=== PATIENT | female | born 1980 | race Caucasian/White ===

== ENCOUNTER 2024-02-23 14:04 | Inpatient (IN) | payer OTHER ==
[~2024-02-23] VITALS: Ht 182.9 cm; Wt 59.4 kg
[2024-02-23] MEDS: MORPHINE SULFATE INJ 2 MG/ML DISP.SYRIN IV ONE (15:00)
[2024-02-23] MEDS: ONDANSETRON HCL/PF 4 MG/2 ML VIAL IVP ONE (15:00)
[2024-02-23] MEDS: FAMOTIDINE (20 MG) 20 MG TABLET PO ONE (15:00)
[2024-02-23] MEDS: IV NS 0.9% 1,000 ML BAG IV ONE (15:00)
[2024-02-23] MEDS ORDERED: ONDANSETRON HCL/PF 4 MG/2 ML VIAL ONE ×2 (15:09→21:40)
[2024-02-23] MEDS ORDERED: FAMOTIDINE (20 MG) 20 MG TABLET ONE (15:10)
[2024-02-23] MEDS ORDERED: MORPHINE SULFATE INJ 4 MG/ML DISP.SYRIN ONE ×2 (15:10→21:41)
[2024-02-23] MEDS ORDERED: CT SWABBABLE VALVE TRANS SET 1 EA INFUS.SET MC ONE (15:16)
[2024-02-23] MEDS ORDERED: IOHEXOL-300 100 ML VIAL IV ONE ×2 (15:16→16:34)
[2024-02-23] MEDS ORDERED: LOPE2CAP PO (15:49)
[2024-02-23] MEDS ORDERED: IBUP-1953 PO (15:49)
[2024-02-23] MEDS ORDERED: LACT1CAP73 PO (15:49)
[2024-02-23 16:12] LABS: BASOPHILS # (AUTO) 0.1 K/uL (0.0-0.2); EOSINOPHILS # (AUTO) 0.6 K/uL (0.0-0.7); EOSINOPHILS % (AUTO) 5.3 % (0.0-6.0); HEMATOCRIT 36 % (33-45); HEMOGLOBIN 12.5 g/dL (11.5-14.8); LYMPHOCYTES # (AUTO) 0.9 K/uL (0.8-4.8); LYMPHOCYTES % (AUTO) 8.7 % (20.0-44.0); MEAN CORPUSCULAR HEMOGLOBIN 31 PG (26.0-33.0); MEAN CORPUSCULAR HGB CONC 35 g/dl (31.0-36.0); MEAN CORPUSCULAR VOLUME 90 fL (82-100); MONOCYTES # (AUTO) 0.8 K/uL (0.1-1.30); NEUTROPHILS # (AUTO) 8.3 K/uL (1.8-8.9); PLATELET COUNT (AUTO) 273 K/uL (150-450); RED BLOOD CELL COUNT(AUTO) 4.03 MIL/uL (4.0-5.2); RED CELL DISTRIBUTION WIDTH 13.1 % (11.5-15.0); WHITE BLOOD COUNT (AUTO) 10.7 K/uL (4.3-11.0)
[2024-02-23 16:21] LABS: CALCIUM, SERUM 8.5 mg/dL (8.5-10.1); CARBON DIOXIDE 26 mmol/L (21-32); CHLORIDE 103 mmol/L (98-107); CREATININE 0.7 mg/dL (0.6-1.3); GLUCOSE 113 mg/dL (74-106); POTASSIUM 3.8 mmol/L (3.5-5.1); SODIUM SERUM 137 mmol/L (136-145); UREA NITROGEN, BLOOD 14 mg/dL (7-18)
[2024-02-23 16:27] LABS: ALANINE AMINOTRANSFERASE < 6 U/L (12-78); ALBUMIN 1.9 g/dL (3.4-5.0); ALKALINE PHOSPHATASE 85 U/L (46-116); ASPARTATE AMINOTRANSFERASE 8 U/L (15-37); BILIRUBIN,DIRECT 0.3 mg/dL (0.0-0.2); BILIRUBIN,TOTAL 0.7 mg/dL (0.2-1.0); LIPASE 16 U/L (16-77); TOTAL PROTEIN, SERUM 5.8 g/dL (6.4-8.2)
[2024-02-23 16:30] LABS: LACTIC ACID 0.9 mmol/L (0.4-2.0)
[2024-02-23] MEDS ORDERED: MAGNESIUM HYDROXIDE 30 ML UDC PO PRN (18:30)
[2024-02-23] MEDS ORDERED: MAG HYDROX/AL HYDROX/SIMETH 30 ML UDC PO PRN (18:30)
[2024-02-23] MEDS ORDERED: Z GUARD REMEDY 4 OZ OINT TP PRN (18:30)
[2024-02-23 18:37] LABS: APPEARANCE,URINE CLEAR (CLEAR); BILIRUBIN,URINE NEGATIVE (NEGATIVE); BLOOD, URINE 2+ Ery/uL (NEGATIVE); COLOR,URINE YELLOW (YELLOW); KETONES,URINE 2+ mg/dL (NEGATIVE); LEUKOCYTE ESTERASE ,URINE NEGATIVE (NEGATIVE); NITRITE, URINE POSITIVE (NEGATIVE); PH,URINE 6.5 (5.0-8.0); PROTEIN,URINE NEGATIVE (NEGATIVE); UGLUCOSE NEGATIVE (NEGATIVE); UROBILINOGEN,URINE 0.2 EU/dL (0.2)
[2024-02-23 18:40] LABS: PREGNANCY TEST URINE QUAL NEGATIVE (NEGATIVE)
[2024-02-23 18:48] LABS: WBC,URINE 0-2 /HPF (0-3)
[2024-02-23 18:49] LABS: ADD URINE CULTURE YES
[2024-02-23 18:50] LABS: BACTERIA,URINE 1+ /HPF (None Seen); YEAST,URINE None Seen /HPF (None Seen)
[2024-02-23 18:51] LABS: TRICHOMONAS,URINE None Seen /HPF (None Seen)
[2024-02-23 19:10] LABS: OCCULT BLOOD STOOL POSITIVE (NEGATIVE)
[2024-02-23 21:41] VITALS: O2SAT 98
[2024-02-23] MEDS: ONDANSETRON HCL/PF 4 MG/2 ML VIAL IV PRN (21:47)
[2024-02-23] MEDS: MORPHINE SULFATE INJ 4 MG/ML DISP.SYRIN IV PRN (21:47)
[2024-02-23 22:00] VITALS: BP 107/71; TEMP 98.1; O2SAT 100
[2024-02-23] MEDS: IV NS 0.9% 1,000 ML IV PRN (22:18)
[2024-02-24] MEDS: ZOSYN IVPB 3.375 G in IV D5W 50ml IV SCH
[2024-02-24 06:37] LABS: BASOPHILS # (AUTO) 0.1 K/uL (0.0-0.2); EOSINOPHILS # (AUTO) 0.4 K/uL (0.0-0.7); EOSINOPHILS % (AUTO) 2.7 % (0.0-6.0); HEMATOCRIT 33 % (33-45); HEMOGLOBIN 11.2 g/dL (11.5-14.8); LYMPHOCYTES # (AUTO) 1.5 K/uL (0.8-4.8); LYMPHOCYTES % (AUTO) 11.1 % (20.0-44.0); MEAN CORPUSCULAR HEMOGLOBIN 30 PG (26.0-33.0); MEAN CORPUSCULAR HGB CONC 34 g/dl (31.0-36.0); MEAN CORPUSCULAR VOLUME 90 fL (82-100); MONOCYTES # (AUTO) 1.5 K/uL (0.1-1.30); MONOCYTES % (AUTO) 11.4 % (2.0-12.0); NEUTROPHILS # (AUTO) 9.7 K/uL (1.8-8.9); NEUTROPHILS % (AUTO) 73.8 % (43.0-81.0); PLATELET COUNT (AUTO) 243 K/uL (150-450); RED BLOOD CELL COUNT(AUTO) 3.73 MIL/uL (4.0-5.2); RED CELL DISTRIBUTION WIDTH 13.1 % (11.5-15.0); WHITE BLOOD COUNT (AUTO) 13.2 K/uL (4.3-11.0)
[2024-02-24 07:07] LABS: CALCIUM, SERUM 7.9 mg/dL (8.5-10.1); CREATININE 0.8 mg/dL (0.6-1.3); MAGNESIUM 1.9 mg/dL (1.8-2.4); PHOSPHORUS 3.8 mg/dL (2.5-4.9); POTASSIUM 3.4 mmol/L (3.5-5.1)
[2024-02-24 08:00] VITALS: BP 90/61; TEMP 100.6; O2SAT 98
[2024-02-24] MEDS: PANTOPRAZOLE 40 MG VIAL IV SCH (08:48)
[2024-02-24] MEDS: ACETAMINOPHEN 325 MG TABLET PO PRN (08:52)
[2024-02-24] MEDS: POTASSIUM CHLORIDE 20 MEQ TAB.PRT.SR PO ONE (09:22)
[2024-02-24] MEDS: PIPERACILLIN /TAZOBACTAM 3.375 G in IV D5W 100 ML IV SCH (12:03)
[2024-02-24] MEDS: MORPHINE SULFATE INJ 2 MG/ML DISP.SYRIN IV PRN (12:46)
[2024-02-24 16:00] VITALS: BP 96/53; TEMP 98.6; O2SAT 100
[2024-02-24 20:00] VITALS: BP 93/61; TEMP 98.8; O2SAT 96
[2024-02-24] MEDS: LOPERAMIDE HCL (2 MG CAP) 2 MG CAPSULE PO PRN (20:31)
[2024-02-24] MEDS: TRAZODONE 50 MG TABLET PO PRN (21:14)
[2024-02-25 07:16] LABS: CALCIUM, SERUM 7.6 mg/dL (8.5-10.1); CREATININE 0.6 mg/dL (0.6-1.3); POTASSIUM 3.6 mmol/L (3.5-5.1)
[2024-02-25 08:00] LABS: BASOPHILS # (AUTO) 0.1 K/uL (0.0-0.2); BASOPHILS % (AUTO) 0.9 % (0.0-2.0); EOSINOPHILS # (AUTO) 0.5 K/uL (0.0-0.7); EOSINOPHILS % (AUTO) 5.1 % (0.0-6.0); HEMATOCRIT 34 % (33-45); HEMOGLOBIN 11.6 g/dL (11.5-14.8); LYMPHOCYTES # (AUTO) 1.3 K/uL (0.8-4.8); LYMPHOCYTES % (AUTO) 11.8 % (20.0-44.0); MEAN CORPUSCULAR HEMOGLOBIN 30 PG (26.0-33.0); MEAN CORPUSCULAR HGB CONC 34 g/dl (31.0-36.0); MEAN CORPUSCULAR VOLUME 90 fL (82-100); MONOCYTES # (AUTO) 1.2 K/uL (0.1-1.30); MONOCYTES % (AUTO) 10.8 % (2.0-12.0); NEUTROPHILS # (AUTO) 7.7 K/uL (1.8-8.9); NEUTROPHILS % (AUTO) 71.4 % (43.0-81.0); PLATELET COUNT (AUTO) 236 K/uL (150-450); RED BLOOD CELL COUNT(AUTO) 3.84 MIL/uL (4.0-5.2); RED CELL DISTRIBUTION WIDTH 13.4 % (11.5-15.0); WHITE BLOOD COUNT (AUTO) 10.7 K/uL (4.3-11.0)
[2024-02-25 08:17] VITALS: BP 95/65; TEMP 97.9; O2SAT 97
[2024-02-25] MEDS: PANTOPRAZOLE 40 MG TABLET.DR PO SCH (08:33)
[2024-02-25] MEDS: METRONIDAZOLE 250 MG TABLET PO SCH (15:16)
[2024-02-25 15:53] VITALS: BP 110/66; TEMP 100.6; O2SAT 97
[2024-02-25 20:10] VITALS: BP 98/60; TEMP 99.3; O2SAT 100
[2024-02-25] MEDS: FIDAXOMICIN 200 MG TABLET PO SCH (21:00)
[2024-02-26 06:45] LABS: BASOPHILS # (AUTO) 0.1 K/uL (0.0-0.2); BASOPHILS % (AUTO) 0.8 % (0.0-2.0); EOSINOPHILS # (AUTO) 0.4 K/uL (0.0-0.7); EOSINOPHILS % (AUTO) 4.8 % (0.0-6.0); HEMATOCRIT 34 % (33-45); HEMOGLOBIN 11.4 g/dL (11.5-14.8); LYMPHOCYTES # (AUTO) 1.4 K/uL (0.8-4.8); LYMPHOCYTES % (AUTO) 16.8 % (20.0-44.0); MEAN CORPUSCULAR HEMOGLOBIN 30 PG (26.0-33.0); MEAN CORPUSCULAR HGB CONC 33 g/dl (31.0-36.0); MEAN CORPUSCULAR VOLUME 90 fL (82-100); MONOCYTES # (AUTO) 1.2 K/uL (0.1-1.30); MONOCYTES % (AUTO) 14.7 % (2.0-12.0); NEUTROPHILS # (AUTO) 5.2 K/uL (1.8-8.9); NEUTROPHILS % (AUTO) 62.9 % (43.0-81.0); PLATELET COUNT (AUTO) 219 K/uL (150-450); RED BLOOD CELL COUNT(AUTO) 3.78 MIL/uL (4.0-5.2); RED CELL DISTRIBUTION WIDTH 13.3 % (11.5-15.0); WHITE BLOOD COUNT (AUTO) 8.3 K/uL (4.3-11.0)
[2024-02-26 07:15] VITALS: BP 91/55; TEMP 97.5; O2SAT 98
[2024-02-26 07:15] LABS: CALCIUM, SERUM 7.5 mg/dL (8.5-10.1); CREATININE 0.5 mg/dL (0.6-1.3); POTASSIUM 3.6 mmol/L (3.5-5.1)
[2024-02-26 07:20] VITALS: BP 128/65; TEMP 99.7; O2SAT 95
[2024-02-26 07:25] VITALS: BP 91/55; TEMP 97.5; O2SAT 98
[2024-02-26 08:00] VITALS: BP 87/55; TEMP 98.2; O2SAT 97
[2024-02-26] MEDS: FIDAXOMICIN 200 MG TABLET PO SCH (09:27)
[2024-02-26] MEDS: ONDANSETRON HCL/PF 4 MG/2 ML VIAL IVP PRN (10:07)
[2024-02-26] MEDS: IV D5/0.45 NACL 1,000 ML IV SCH (13:26)
[2024-02-26] MEDS: METRONIDAZOLE 500 MG TABLET PO SCH (13:55)
[2024-02-26 16:00] VITALS: BP 94/62; TEMP 98.1; O2SAT 100
[2024-02-26] MEDS ORDERED: METRONIDAZOLE 500 MG TABLET PO SCH (21:00)
[2024-02-27 07:28] LABS: BASOPHILS % (AUTO) 0.5 % (0.0-2.0); EOSINOPHILS % (AUTO) 10.5 % (0.0-6.0); HEMATOCRIT 32 % (33-45); HEMOGLOBIN 11.1 g/dL (11.5-14.8); LYMPHOCYTES # (AUTO) 1.7 K/uL (0.8-4.8); LYMPHOCYTES % (AUTO) 18.8 % (20.0-44.0); MEAN CORPUSCULAR HEMOGLOBIN 31 PG (26.0-33.0); MEAN CORPUSCULAR HGB CONC 35 g/dl (31.0-36.0); MEAN CORPUSCULAR VOLUME 89 fL (82-100); MONOCYTES # (AUTO) 0.9 K/uL (0.1-1.30); MONOCYTES % (AUTO) 10.3 % (2.0-12.0); NEUTROPHILS # (AUTO) 5.4 K/uL (1.8-8.9); NEUTROPHILS % (AUTO) 59.9 % (43.0-81.0); PLATELET COUNT (AUTO) 238 K/uL (150-450); WHITE BLOOD COUNT (AUTO) 9.1 K/uL (4.3-11.0)
[2024-02-27 07:30] LABS: CALCIUM, SERUM 7.4 mg/dL (8.5-10.1); CREATININE 0.5 mg/dL (0.6-1.3); MAGNESIUM 2.3 mg/dL (1.8-2.4); PHOSPHORUS 2.2 mg/dL (2.5-4.9)
[2024-02-27 08:00] VITALS: BP 108/69; TEMP 98.4; O2SAT 96
[2024-02-27] MEDS: ACIDOPHILUS/BULGARICUS 1 EACH TAB.CHEW PO SCH (08:32)
[2024-02-27] MEDS: IV D5/0.45 NACL 1,000 ML IV SCH (08:59)
[2024-02-27] MEDS: POTASSIUM CHLORIDE 20 MEQ TAB.PRT.SR PO SCH (10:35)
[2024-02-27] MEDS ORDERED: VANC125C11 PO (13:53)
[2024-02-27 16:00] VITALS: BP 112/83; TEMP 98.3; O2SAT 97
[2024-02-27] MEDS: K PHOS NEUTRAL 250 MG TABLET PO ONE (16:14)
== END 2024-02-27 17:03 | disposition home or self-care (01) | DRG 371 ==
LOC: ER 14:30 → MED 21:13
PROVIDERS: ADMIT Internal Medicine; ATTEND Student in an Organized Health Care Education/Training Program
DX: A04.72 Enterocolitis due to Clostridium difficile, not specified as recurrent (principal); E43 Unspecified severe protein-calorie malnutrition; K92.2 Gastrointestinal hemorrhage, unspecified; Z68.1 Body mass index [BMI] 19.9 or less, adult; Z79.899 Other long term (current) drug therapy; E88.09 Other disorders of plasma-protein metabolism, not elsewhere classified; K82.8 Other specified diseases of gallbladder; K83.8 Other specified diseases of biliary tract
CPT/HCPCS: 36415; 80048-TC; 80076-TC; 81001; 82272-TC; 83605-TC; 83690-TC; 83735-TC; 84100-TC; 84703-TC; 85025-TC; 87040-TC; 87086-TC; 89055; A4223; G0378; J2270; J2405; J2543; J3490; J7030; J7060; Q9967